=== PATIENT | female | born 1955 | race Caucasian/White ===

== ENCOUNTER → 2017-12-22 | Outpatient (CLI) | payer BC ==
[~2017-12-22] MED LIST: NO HOME MEDICATIONS
== END ==
LOC: MC.RAD 14:33
DX: Z12.31 Encounter for screening mammogram for malignant neoplasm of breast (principal)

== ENCOUNTER → 2020-08-12 | Outpatient (CLI) | payer BC | LOC: MC.RAD 08:45 | DX: Z12.31 Encounter for screening mammogram for malignant neoplasm of breast (principal) ==

== ENCOUNTER → 2023-04-27 | Outpatient (CLI) | payer BC | LOC: MC.RAD 12:54 | DX: Z12.31 Encounter for screening mammogram for malignant neoplasm of breast (principal) ==